=== PATIENT | male | born 1965 | race Caucasian/White ===

== ENCOUNTER 2017-12-23 05:23 | Inpatient (IN) | payer BC ==
[2017-12-16 12:30] LABS: BASOPHILS % (AUTO) 0.5 % (0-1); EOSINOPHILS # (AUTO) 0.1 X10'3 (0-0.9); EOSINOPHILS % (AUTO) 1.2 % (0-6); LYMPHOCYTES # (AUTO) 1.4 X10'3 (1.1-4.8); LYMPHOCYTES % (AUTO) 21.6 % (21-51); MEAN CORPUSCULAR HEMOGLOBIN 31.4 PG (27.0-31.0); MEAN CORPUSCULAR HGB CONC 34.5 % (33.0-36.5); MEAN CORPUSCULAR VOLUME 91.2 FL (78-98); MEAN PLATELET VOLUME 7.6 FL (7.4-10.4); MONOCYTES # (AUTO) 0.5 X10'3 (0-0.9); MONOCYTES % (AUTO) 7.2 % (2-12); NEUTROPHILS # (AUTO) 4.6 X10'3 (1.8-7.7); NEUTROPHILS % (AUTO) 69.5 % (42-75); PRE OP HEMATOCRIT 45.6 % (42.0-52.0); PRE OP HEMOGLOBIN 15.7 g/dL (14.0-17.9); PRE OP PLATELET COUNT 214 X10'3 (140-440); RED CELL DISTRIBUTION WIDTH 14.4 % (11.5-14.5)
[2017-12-16 12:43] LABS: CLARITY,URINE Clear (Clear); COLOR,URINE Yellow (Yellow); GLUCOSE, URINE Negative (Neg); KETONES,URINE Negative (Neg); LEUKOCYTE ESTERASE ,URINE Moderate (Neg); NITRITES, URINE Negative (Neg); OCCULT BLOOD,URINE Negative (Neg); PH,URINE 6.5 (4.8-8.0); PROTEIN,URINE 30 mg/dl (Neg)
[2017-12-16 12:47] LABS: ALBUMIN 3.8 G/DL (3.4-5.0); ALBUMIN/GLOBULIN RATIO 1.1 (1.1-1.5); ALKALINE PHOSPHATASE 92 IU/L (46-116); BLOOD UREA NITROGEN 15 MG/DL (7-18); BUN/CREATININE RATIO 17.2 (5.4-32.0); CALCIUM 8.9 MG/DL (8.5-10.1); CHLORIDE 108 MMOL/L (99-107); CREATININE 0.87 MG/DL (0.60-1.10); PRE OP ALT 31 U/L (30-65); PRE OP ANION GAP 7 (8-16); PRE OP AST 23 U/L (10-37); PRE OP BILIRUB, TOTAL 0.5 MG/DL (0.0-1.0); PRE OP GLUCOSE 95 MG/DL (70-104); PRE OP POTASSIUM 4.1 MMOL/L (3.4-5.1); PRE OP SODIUM 142 MMOL/L (135-145); TOTAL CARBON DIOXIDE 27.1 MMOL/L (24-32); TOTAL PROTEIN 7.4 G/DL (6.4-8.2); eGFR > 90 ML/MIN
[2017-12-16 12:50] LABS: UA COLLECTION TYPE CLN CATCH MIDSTREAM
[2017-12-16 12:51] LABS: BACTERIA,URINE NONE SEEN /HPF (Neg); RBC,URINE 0-2 /HPF (0-2); SQUAMOUS EPITHELIAL CELL,UR FEW /LPF (FEW); WBC,URINE 0-4 /HPF (0-4)
[~2017-12-23] VITALS: Ht 188 cm; Wt 145.0 kg
[2017-12-23] VITALS (24 sets, daily range): BP systolic 104–155; BP diastolic 56–79
[~2017-12-23 05:23] MED LIST: NO HOME MEDS; ringers solution, lacted 1,000 ML IV SCH
[2017-12-23] MEDS ORDERED: oxyCODONE SR 10mg (sust. release) tab PO ONE (05:30)
[2017-12-23] MEDS ORDERED: celeCOXIB 100mg capsule PO ONE (05:30)
[2017-12-23] MEDS ORDERED: ceFAZolin inj. 2,000 MG in dextrose 5%-water 100 ML IV ONE (05:30)
[2017-12-23] MEDS ORDERED: metoclopramide 5 mg/ml inj IV ONE (05:30)
[2017-12-23] MEDS ORDERED: famotidine 20mg tablet PO ONE (05:30)
[2017-12-23] MEDS ORDERED: vancomycin inj 1,500 MG in normal saline 300ml IV soln IV ONE (05:30)
[2017-12-23] MEDS ORDERED: tranexamic acid inj. 1,000 MG in normal saline 100ml IV soln 90 ML IV ONE (05:30)
[2017-12-23] MEDS ORDERED: acetaminophen 325mg tablet PO ONE (05:30)
[2017-12-23] MEDS ORDERED: gabapentin 300mg capsule PO ONE (05:30)
[2017-12-23] MEDS ORDERED: LIDOcaine 1% (10mg/ml) 2ml vial ONE (05:51)
[2017-12-23] MEDS ORDERED: magnesium hydroxide 30ml (MOM) UD suspension PO PRN (06:30)
[2017-12-23] MEDS ORDERED: HYDROmorphone 1 mg/ml syringe IV PRN (06:30)
[2017-12-23] MEDS ORDERED: ondansetron/PF 4mg/2ml inj IV PRN ×3 (06:30→11:45)
[2017-12-23] MEDS ORDERED: acetaminophen 325mg tablet PO PRN (06:30)
[2017-12-23] MEDS ORDERED: diphenhydrAMINE 25mg capsule PO PRN ×2 (06:30)
[2017-12-23] MEDS ORDERED: bisacodyl 10mg suppository rectal RC PRN (06:30)
[2017-12-23] MEDS ORDERED: ketorolac trometh. 30mg/ml inj. ONE (06:44)
[2017-12-23] MEDS ORDERED: cloNIDine hcl/PF 100mcg/ml inj ONE ×2 (06:44→07:08)
[2017-12-23] MEDS ORDERED: epiNEPHrine 1 mg/ml inj ONE (06:44)
[2017-12-23] MEDS ORDERED: ROPIVAcaine 0.5% (5mg/ml) 30ml vial ONE ×2 (06:45→07:08)
[2017-12-23] MEDS ORDERED: vancomycin 1,000mg inj ONE (06:45)
[2017-12-23] MEDS ORDERED: tetracaine 1% (10mg/ml) pres. free inj. ONE (07:09)
[2017-12-23] MEDS ORDERED: BUPIVAcaine/PF 7.5mg/ml (0.75%) 10ml vial ONE (07:09)
[2017-12-23] MEDS ORDERED: fentaNYL/PF 50MCG/1 ML 2ML syringe ONE (07:11)
[2017-12-23] MEDS ORDERED: MIDAZolam 1mg/ml 10ml vial ONE (07:11)
[2017-12-23] MEDS ORDERED: morphine /PF 1mg/ml 10ml inj. ONE (07:11)
[2017-12-23] MEDS ORDERED: LIDOcaine 2% (20mg/ml) 5ml vial ONE (07:36)
[2017-12-23] MEDS ORDERED: propofol inj 20 ML IV ONE ×2 (07:36)
[2017-12-23] MEDS ORDERED: diphenhydrAMINE 50 mg/ml inj ONE (07:42)
[2017-12-23] MEDS: ascorbic acid 500mg tablet PO SCH ×2 (08:00→20:04)
[2017-12-23] MEDS: gabapentin 300mg capsule PO SCH ×3 (08:00→20:04)
[2017-12-23] MEDS: acetaminophen 325mg tablet PO SCH ×3 (08:00→20:05)
[2017-12-23] MEDS: multivitamins, therapeutics tablet PO SCH (08:00)
[2017-12-23] MEDS ORDERED: ringers solution, lacted 1,000 ML IV SCH (08:07)
[2017-12-23] MEDS ORDERED: meperidine/PF 25mg/ml syringe IV PRN ×2 (08:10)
[2017-12-23] MEDS ORDERED: enalaprilat dihydrate 2.5mg/2ml vial IV PRN (08:10)
[2017-12-23] MEDS ORDERED: fentaNYL/PF 50MCG/1 ML 2ML syringe IV PRN ×2 (08:10)
[2017-12-23] MEDS ORDERED: hydrALAZINE 20mg/ml inj. IV PRN (08:10)
[2017-12-23] MEDS: aspirin 325mg tablet PO SCH (08:30)
[2017-12-23] MEDS ORDERED: ondansetron/PF 4mg/2ml inj ONE (09:40)
[2017-12-23] MEDS ORDERED: dexamethasone sod phosphate 10mg/ml inj ONE (09:40)
[2017-12-23] MEDS ORDERED: sevoflurane 250ml liquid IH ONE (09:40)
[2017-12-23] MEDS ORDERED: diphenhydrAMINE 50 mg/ml inj IV PRN (11:45)
[2017-12-23] MEDS: potassium cl 20mEq in 1/2 NS 1,000 ML IV SCH ×2 (14:26→16:02)
[2017-12-23] MEDS: ceFAZolin 2gm in dextrose, iso 100 ML IV SCH (16:02)
[2017-12-23] MEDS: oxyCODONE IR 5mg (immed. release) tablet PO PRN ×2 (16:12→20:04)
[2017-12-23] MEDS: sennosides 8.6mg tablet PO SCH (20:05)
[2017-12-24] VITALS (7 sets, daily range): BP systolic 125–152; BP diastolic 70–85
[2017-12-24] MEDS: ceFAZolin 2gm in dextrose, iso 100 ML IV SCH (00:40)
[2017-12-24] MEDS: oxyCODONE IR 5mg (immed. release) tablet PO PRN ×6 (00:40→23:57)
[2017-12-24] MEDS: HYDROmorphone 1 mg/ml syringe IV PRN ×4 (02:20→21:13)
[2017-12-24] MEDS: acetaminophen 325mg tablet PO SCH ×4 (02:20→20:04)
[2017-12-24 05:58] LABS: BASOPHILS % (AUTO) 0.6 % (0-1); EOSINOPHILS # (AUTO) 0.2 X10'3 (0-0.9); EOSINOPHILS % (AUTO) 3.1 % (0-6); HEMATOCRIT 36.6 % (42.0-52.0); HEMOGLOBIN 12.3 g/dl (14.0-17.9); LYMPHOCYTES # (AUTO) 0.7 X10'3 (1.1-4.8); LYMPHOCYTES % (AUTO) 9.5 % (21-51); MEAN CORPUSCULAR HEMOGLOBIN 31.2 PG (27.0-31.0); MEAN CORPUSCULAR HGB CONC 33.7 % (33.0-36.5); MEAN CORPUSCULAR VOLUME 92.7 FL (78-98); MEAN PLATELET VOLUME 7.7 FL (7.4-10.4); MONOCYTES # (AUTO) 0.7 X10'3 (0-0.9); MONOCYTES % (AUTO) 8.7 % (2-12); NEUTROPHILS # (AUTO) 5.9 X10'3 (1.8-7.7); NEUTROPHILS % (AUTO) 78.1 % (42-75); PLATELET COUNT 170 X10'3 (140-440); RED BLOOD COUNT 3.95 X10'6 (4.70-6.10); RED CELL DISTRIBUTION WIDTH 14.1 % (11.5-14.5); WHITE BLOOD COUNT 7.5 X10'3 (4.5-11.0)
[2017-12-24] MEDS: potassium cl 20mEq in 1/2 NS 1,000 ML IV SCH ×4 (06:26→22:26)
[2017-12-24 06:34] LABS: ANION GAP 4 (8-16); CHLORIDE 103 MMOL/L (99-107); POTASSIUM 4.6 MMOL/L (3.5-5.1); SODIUM 138 MMOL/L (135-145); TOTAL CARBON DIOXIDE 30.6 MMOL/L (24-32)
[2017-12-24] MEDS: ascorbic acid 500mg tablet PO SCH ×2 (08:49→20:04)
[2017-12-24] MEDS: gabapentin 300mg capsule PO SCH ×3 (08:49→20:03)
[2017-12-24] MEDS: multivitamins, therapeutics tablet PO SCH (08:49)
[2017-12-24] MEDS: aspirin 325mg tablet PO SCH (08:49)
[2017-12-24] MEDS: celeCOXIB 100mg capsule PO SCH (20:03)
[2017-12-24] MEDS: sennosides 8.6mg tablet PO SCH (20:04)
[2017-12-25] MEDS: acetaminophen 325mg tablet PO SCH (02:29)
[2017-12-25] MEDS: HYDROmorphone 1 mg/ml syringe IV PRN (03:22)
[2017-12-25 05:00] VITALS: BP 160/75
[2017-12-25] MEDS: oxyCODONE IR 5mg (immed. release) tablet PO PRN ×3 (05:16→13:10)
[2017-12-25 06:05] LABS: BASOPHILS % (AUTO) 0.3 % (0-1); EOSINOPHILS # (AUTO) 0.2 X10'3 (0-0.9); EOSINOPHILS % (AUTO) 3.1 % (0-6); HEMATOCRIT 33.6 % (42.0-52.0); HEMOGLOBIN 11.7 g/dl (14.0-17.9); LYMPHOCYTES # (AUTO) 0.9 X10'3 (1.1-4.8); LYMPHOCYTES % (AUTO) 12.1 % (21-51); MEAN CORPUSCULAR HEMOGLOBIN 31.4 PG (27.0-31.0); MEAN CORPUSCULAR HGB CONC 34.7 % (33.0-36.5); MEAN CORPUSCULAR VOLUME 90.4 FL (78-98); MEAN PLATELET VOLUME 7.3 FL (7.4-10.4); MONOCYTES # (AUTO) 0.8 X10'3 (0-0.9); MONOCYTES % (AUTO) 11.4 % (2-12); NEUTROPHILS # (AUTO) 5.1 X10'3 (1.8-7.7); NEUTROPHILS % (AUTO) 73.1 % (42-75); PLATELET COUNT 169 X10'3 (140-440); RED BLOOD COUNT 3.72 X10'6 (4.70-6.10); RED CELL DISTRIBUTION WIDTH 14.2 % (11.5-14.5)
[2017-12-25] MEDS: ascorbic acid 500mg tablet PO SCH (07:59)
[2017-12-25] MEDS: gabapentin 300mg capsule PO SCH ×2 (07:59→13:10)
[2017-12-25] MEDS: multivitamins, therapeutics tablet PO SCH (07:59)
[2017-12-25] MEDS: aspirin 325mg tablet PO SCH (07:59)
[2017-12-25] MEDS: celeCOXIB 100mg capsule PO SCH (07:59)
[2017-12-25] MEDS ORDERED: ASPI-1 PO (08:32)
[2017-12-25 10:00] VITALS: BP 169/83
[2017-12-25 11:15] VITALS: BP 142/73
== END 2017-12-25 14:15 | disposition home or self-care (01) | DRG 470 ==
LOC: PAS IN 05:23 → EDSTATUS 07:30 → ORTHO 4S 11:44
PROVIDERS: ADMIT Orthopaedic Surgery; ATTEND Orthopaedic Surgery
PROC: 3E0T3BZ Introduction of Anesthetic Agent into Peripheral Nerves and Plexi, Percutaneous Approach (ICD-10-PCS; 2017-12-23)
PROC: 0SRD0J9 Replacement of Left Knee Joint with Synthetic Substitute, Cemented, Open Approach (ICD-10-PCS; principal; 2017-12-23 07:05)
DX: M17.0 Bilateral primary osteoarthritis of knee (principal); D62 Acute posthemorrhagic anemia; Z68.41 Body mass index [BMI] 40.0-44.9, adult; G47.30 Sleep apnea, unspecified; E66.9 Obesity, unspecified
CPT/HCPCS: 36415; 71046; 73560; 80051; 80053; 81001; 85025; 86885; 86900; 86901; 87070; 87088; 97110; 97116; 97162; 97530; A6255; A6449; A6455; A7000; C1713; C1758; C1776; J0171; J0690; J0735; J1100; J1170; J1200; J1885; J2001; J2250; J2274; J2405; J2704; J2765; J2795; J3010; J3370; J3490; J7030; J7060; J7120; Q0163